=== PATIENT | female | born 1980 | race Hispanic/Latino ===

== ENCOUNTER 2018-02-02 09:06 | Emergency (ER) | payer MEDICAID, OTHER ==
[2018-02-02] MEDS ORDERED: SODIUM CHLORIDE 0.9% 1000ML 1,000 ML IV ONE (10:08)
[2018-02-02] MEDS ORDERED: ONDANSETRON HCL MDV 20ML 2 MG/ML VIAL ONE (10:09)
[2018-02-02 10:16] LABS: BASOPHILS % (AUTO) 0.2 % (0.0-5.0); BILIRUBIN,URINE Negative (NEGATIVE); COLOR,URINE Yellow (YELLOW); EOSINOPHILS % (AUTO) 0.4 % (0.0-8.0); GLUCOSE, URINE (UA) Negative (NEGATIVE); HEMATOCRIT 43.1 % (36-48); KETONES,URINE Negative (NEGATIVE); LEUKOCYTE ESTERASE ,URINE Trace (NEGATIVE); LYMPHOCYTES % (AUTO) 4.6 % (21.0-51.0); MEAN CORPUSCULAR HEMOGLOBIN 31.3 pg (27.0-33.0); MEAN CORPUSCULAR HGB CONC 33.7 g/dL (32.0-36.0); MEAN CORPUSCULAR VOLUME 92.8 fL (79-99); MONOCYTES % (AUTO) 4.3 % (3.0-13.0); NEUTROPHILS % (AUTO) 90.5 % (40.0-77.0); NITRATE,URINE Negative (NEGATIVE); OCCULT BLOOD,URINE Negative (NEGATIVE); PH,URINE 5.5 (5.0-8.0); PLATELET COUNT (AUTO) 236 K/uL (130-400); PROTEIN,URINE Trace (NEGATIVE); RED BLOOD CELL COUNT(AUTO) 4.64 MIL/uL (4.00-5.50); RED CELL DISTRIBUTION WIDTH 12.8 % (11.0-15.5); UROBILINOGEN,URINE 0.2 mg/dL (0.2-1.0); WHITE BLOOD COUNT (AUTO) 16.6 K/uL (4.8-10.8)
[2018-02-02 10:19] LABS: HCG,QUAL RESULT POSITIVE (NEGATIVE)
[2018-02-02 10:23] LABS: APPEARANCE,URINE CLEAR (CLEAR)
[2018-02-02 10:29] LABS: CREATININE 0.7 mg/dL (0.5-1.5); POTASSIUM 3.5 mmol/L (3.5-5.1)
[2018-02-02 10:35] LABS: ALBUMIN 4.2 g/dL (3.5-5.0); BILIRUBIN,TOTAL 0.7 mg/dL (0.2-1.0); TOTAL PROTEIN, SERUM 8.2 g/dL (6.0-8.3)
[2018-02-02 10:42] LABS: BACTERIA,URINE Rare /HPF (None Seen); MUCUS,URINE Many LPF (None Seen); RBC,URINE None Seen /HPF (0-1); WBC,URINE 0-1 /HPF (0-1)
[2018-02-02 11:22] LABS: AMYLASE 39 U/L (25-115); LIPASE 142 U/L (114-286)
== END 2018-02-02 11:56 | disposition home or self-care (01) ==
LOC: EDH 09:06
DX: O21.0 Mild hyperemesis gravidarum (principal); O26.891 Other specified pregnancy related conditions, first trimester; R19.7 Diarrhea, unspecified; Z98.890 Other specified postprocedural states; Z90.49 Acquired absence of other specified parts of digestive tract; Z3A.01 Less than 8 weeks gestation of pregnancy
CPT/HCPCS: 36415; 76801; 80053; 81001; 81025; 82150; 83690; 85025; 86677; 96361; 96374; 99285; J7030

== ENCOUNTER 2018-08-17 00:56 | Observation (INO) | payer MEDICAID, OTHER ==
[~2018-08-17] VITALS: Ht 149.9 cm; Wt 77.1 kg
[2018-08-17 01:37] LABS: APPEARANCE,URINE Clear (CLEAR); BILIRUBIN,URINE Negative (NEGATIVE); COLOR,URINE Yellow (YELLOW); GLUCOSE, URINE (UA) Negative (NEGATIVE); KETONES,URINE Negative (NEGATIVE); LEUKOCYTE ESTERASE ,URINE Trace (NEGATIVE); NITRATE,URINE Positive (NEGATIVE); OCCULT BLOOD,URINE Trace (NEGATIVE); PH,URINE 6.5 (5.0-8.0); PROTEIN,URINE Negative (NEGATIVE)
[2018-08-17 02:04] LABS: BACTERIA,URINE Rare /HPF (None Seen); RBC,URINE 0-1 /HPF (0-1); SQUAMOUS EPITHELIAL CELL,UR Few /HPF (0-2); WBC,URINE 0-1 /HPF (0-1)
[2018-08-17] MEDS ORDERED: LACTATED RINGERS 1000ML 1,000 ML IV ONE (02:29)
[2018-08-17] MEDS ORDERED: AMPICILLIN 2GM+NS 100ML 100 ML IV ONE (02:29)
[2018-08-17] MEDS ORDERED: LACTATED RINGERS 1000ML IV SCH (02:30)
[2018-08-17] MEDS ORDERED: AMPICILLIN 2GM+NS 100ML 100 ML IV SCH (02:30)
[2018-08-17] MEDS ORDERED: LACTATED RINGERS 1000ML 1,000 ML IV SCH (02:30)
[2018-08-17] MEDS ORDERED: CEFTRIAXONE SODIUM 1 GM IVP SCH (08:00)
== END 2018-08-17 10:14 | disposition home or self-care (01) ==
LOC: EDH 00:56 → LDH 01:13
PROVIDERS: ADMIT Obstetrics & Gynecology; ATTEND Obstetrics & Gynecology
DX: O26.893 Other specified pregnancy related conditions, third trimester (principal); O09.523 Supervision of elderly multigravida, third trimester; R10.30 Lower abdominal pain, unspecified; O24.419 Gestational diabetes mellitus in pregnancy, unspecified control; Z3A.32 32 weeks gestation of pregnancy
CPT/HCPCS: 81001; 99285; G0378 ×9; J0290; J0696; J7120; 96360; 96361

== ENCOUNTER 2022-02-28 09:13 | Emergency (ER) | payer MEDICAID, OTHER ==
[~2022-02-28] VITALS: Ht 149.9 cm; Wt 62.1 kg
[2022-02-28 09:15] VITALS: BP 125/76
[2022-02-28] MEDS ORDERED: TETANUS/DIPHTHERIA TOXOID [ADULT] 0.5 ML VIAL IM SCH (09:30)
[2022-02-28] MEDS ORDERED: AMOX1TAB16 PO (09:44)
[2022-02-28] MEDS ORDERED: IBUP-2070 PO (09:44)
[2022-02-28] MEDS ORDERED: IBUPROFEN 600 MG TABLET PO ONE (10:00)
[2022-02-28] MEDS ORDERED: AMOX/CLAV 875/125MG TAB PO ONE (10:00)
== END 2022-02-28 09:47 | disposition home or self-care (01) ==
LOC: EDH 09:13
DX: S80.212A Abrasion, left knee, initial encounter (principal); S80.211A Abrasion, right knee, initial encounter; S20.311A Abrasion of right front wall of thorax, initial encounter; S61.431A Puncture wound without foreign body of right hand, initial encounter; Z90.49 Acquired absence of other specified parts of digestive tract; Z98.890 Other specified postprocedural states; W54.0XXA Bitten by dog, initial encounter; Y93.89 Activity, other specified; Y92.89 Other specified places as the place of occurrence of the external cause; Y99.8 Other external cause status
CPT/HCPCS: 90471; 90714

== ENCOUNTER 2022-03-16 12:29 | Emergency (ER) | payer OTHER ==
[~2022-03-16] VITALS: Ht 152.4 cm; Wt 62.1 kg
[~2022-03-16 12:29] MED LIST: AMOX1TAB16 PO; IBUP-2070 PO
[2022-03-16 12:31] VITALS: BP 122/67
[2022-03-16 12:52] LABS: APPEARANCE,URINE Cloudy (CLEAR); BILIRUBIN,URINE Negative (NEGATIVE); COLOR,URINE Yellow (YELLOW); GLUCOSE, URINE (UA) Negative (NEGATIVE); KETONES,URINE Negative (NEGATIVE); LEUKOCYTE ESTERASE ,URINE Large (NEGATIVE); NITRATE,URINE Positive (NEGATIVE); OCCULT BLOOD,URINE Small (NEGATIVE); PH,URINE 7.5 (5.0-8.0); PROTEIN,URINE POS 1+ mg/dL (NEGATIVE)
[2022-03-16 12:55] LABS: HCG,QUAL RESULT NEGATIVE (NEGATIVE)
[2022-03-16 13:06] LABS: BASOPHILS % (AUTO) 0.1 % (0.0-5.0); EOSINOPHILS % (AUTO) 1.8 % (0.0-8.0); HEMATOCRIT 37.3 % (36-48); LYMPHOCYTES % (AUTO) 26.6 % (21.0-51.0); MEAN CORPUSCULAR HEMOGLOBIN 29.2 pg (27.0-33.0); MEAN CORPUSCULAR HGB CONC 33.8 g/dL (32.0-36.0); MEAN CORPUSCULAR VOLUME 86.3 fL (79-99); MONOCYTES % (AUTO) 6.3 % (3.0-13.0); PLATELET COUNT (AUTO) 219 K/uL (130-400); RED BLOOD CELL COUNT(AUTO) 4.32 MIL/uL (4.00-5.50); RED CELL DISTRIBUTION WIDTH 11.7 % (11.0-15.5); WHITE BLOOD COUNT (AUTO) 8.9 K/uL (4.8-10.8)
[2022-03-16 13:09] LABS: BACTERIA,URINE Moderate /HPF (None Seen); WBC,URINE >100 /HPF (0-1)
[2022-03-16] MEDS ORDERED: CEPH500B PO (14:42)
[2022-03-16] MEDS ORDERED: PHEN-847 PO (14:42)
[2022-03-16] MEDS ORDERED: LIDOCAINE HCL MPF 1% 5ML VIAL ONE (14:48)
[2022-03-16] MEDS ORDERED: PHENAZOPYRIDINE HCL 200 MG TABLET PO ONE (15:00)
[2022-03-16] MEDS ORDERED: CEFTRIAXONE 1G VIAL IM ONE (15:00)
== END 2022-03-16 15:18 | disposition home or self-care (01) ==
LOC: EDH 12:29
DX: N39.0 Urinary tract infection, site not specified (principal); Z79.1 Long term (current) use of non-steroidal anti-inflammatories (NSAID); Z90.49 Acquired absence of other specified parts of digestive tract
CPT/HCPCS: 36415; 81001; 81025; 85025; 87077; 87088; 87186; 96372; 99283; J0696; J3490